=== PATIENT | male | born 1965 | race Caucasian/White ===

== ENCOUNTER 2025-02-22 15:52 | Emergency (ER) | payer OTHER, SELFPAY ==
[2025-02-22] VITALS (8 sets, daily range): BP systolic 130; BP diastolic 75–78; PULSE 71–73; TEMP 36.3; O2SAT 93–100; BMI 33.5
--- NOTE | 2025-02-22 16:06 | ECG_ITS ---
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 Measurements Intervals [place] Rate: 67 P: 24 TX: 190 QRS: 19 QRSD: 98 T: 66 QT: 434 QTc: 449 Interpretive Statements 1100 Sinus rhythm 9110 normal ECG No previous ECG available for comparison Electronically Signed On 02-22-2025 20:20:38 EDT by ANDRZEJ ESPINAL M.D.
--- NOTE | 2025-02-22 16:07 | ED.GENADUL1 ---
HPI HPI - General Adult General Chief complaint: Altered Mental Status Stated complaint: HYPOGLYCEMIA Time Seen by Provider: 02/22/25 16:05 History of Present Illness HPI narrative: 59-year-old male presents for altered mental status and presumed low blood sugar. He was transported here by his family. The patient was unresponsive upon arrival. Family arrives and give the recent history. [place] found him semiresponsive. They put him in their vehicle and brought him here. Upon arrival to the hospital he was unresponsive and he needed to be taken out of the vehicle by staff. Blood sugar read low and treatment ensued here. Family reports that he has been having recent episodes of low blood sugar and are requesting an alcohol level. He is on an insulin pump which was attached to him upon arrival. Related Data Home Medications ?Medication ?Instructions ?Recorded ?Confirmed celecoxib 200 mg capsule mg 02/22/25 ferrous sulfate 325 mg (65 mg mg 02/22/25 iron) tablet insulin aspart U-100 100 unit/mL 02/22/25 subcutaneous solution (Novolog U-100 Insulin aspart) levothyroxine 112 mcg tablet mcg 02/22/25 prochlorperazine maleate 10 mg mg 02/22/25 tablet Allergies Allergy/AdvReac Type Severity Reaction Status Date / Time No Known Drug Allergies Allergy Verified 02/22/25 16:04 Opioid HPI Opioid Management Most Recent Opioid Data: No Data to Display Review of Systems ROS Narrative After he was responsive review of systems was possible. A ten point review of systems is negative except as noted above. Exam Narrative Exam Narrative: Nurses note and vital signs reviewed and patient is not hypoxic. General: The patient is unresponsive upon arrival and diaphoretic Skin: Warm, diaphoretic, no pallor noted. There is no rash noted. Head: Normocephalic, atraumatic Eye: Normal conjunctiva, no drainage Ears, Nose, Mouth, and Throat: oral mucosa is moist. Nares patent. Cardiovascular: Regular Rate and Rhythm Respiratory: Patient is in no distress, no accessory muscle use, lungs are clear to auscultation, no wheezing, rales or rhonchi Back: non-tender GI: Soft and nontender Musculoskeletal: The patient has no evidence of calf tenderness, no pitting edema, symmetrical pulses noted bilaterally Neurological: Initially unresponsive. Subsequently awake and alert and oriented Psychiatric: Cooperative Constitutional Vital Signs, click to edit/add: Last Vital Signs Temp 97.4 F L 02/22/25 16:22 Pulse 72 02/22/25 16:40 Resp 22 H 02/22/25 16:40 BP 130/78 02/22/25 16:03 Pulse Ox 99 02/22/25 16:40 O2 Del Method Room Air 02/22/25 15:59 Course Vital Signs Vital signs: Vital Signs Pulse Rate 71 02/22/25 15:59 Respiratory Rate 8 L 02/22/25 15:59 Blood Pressure 130/75 02/22/25 15:59 Pulse Oximetry 99 02/22/25 15:59 Oxygen Delivery Method Room Air 02/22/25 15:59 Temperature 97.4 F L 02/22/25 16:22 Pulse Rate 72 02/22/25 16:40 Respiratory Rate 22 H 02/22/25 16:40 Blood Pressure 130/78 02/22/25 16:03 Pulse Oximetry 99 02/22/25 16:40 Oxygen Delivery Method Room Air 02/22/25 15:59 Medical Decision Making MDM Narrative Medical decision making narrative: The patient presented unresponsive and had a blood sugar of 22. He was given D50 and woke up and is now fully oriented. He was able to eat a small amount of food and his family is going to get him more food after leaving here. He will follow-up with his doctor for adjustment of his medication since he has been having frequent episodes of hypoglycemia. Findings were discussed with his family. Lab Data Lab results reviewed: Yes I reviewed the patient's lab results Labs: Lab Results 02/22/25 02/22/25 02/22/25 Range/Units 16:00 16:08 16:47 WBC 9.4 (4.0-11.0) 10^3/uL RBC 3.26 L (4.70-6.10) 10^6/uL Hgb 11.5 L (14.0-18.0) g/dL Hct 32.6 L (42.0-54.0) % MCV 100.0 H (80.0-94.0) fL MCH 35.3 H (25.9-34.0) pg MCHC 35.3 H (29.9-35.2) g/dL RDW 13.3 (11.0-15.0) % Plt Count 293 (150-450) 10^3/uL MPV 9.6 (9.5-13.5) fL Seg Neuts % (Manual) 75.0 (43.0-75.0) Lymphocytes % (Manual) 9.0 L (20.5-60.0) % Monocytes % (Manual) 12.0 (1.7-12.0) % Eosinophils % (Manual) 3.0 (0.9-7.0) % Basophils % (Manual) 1.0 (0.2-2.0) % Neutrophils # (Manual) 7.05 H (1.4-6.5) 10^3/uL Lymphocytes # (Manual) 0.84 L (1.20-3.80) 10^3/uL Monocytes # (Manual) 1.12 H (0.30-0.80) 10^3/uL Eosinophils # (Manual) 0.28 (0.00-0.70) 10^3/uL Basophils # (Manual) 0.09 (0.00-0.10) 10^3/uL Macrocytosis 1+ Sodium 133 L (136-145) mmol/L Potassium 3.3 L (3.5-5.1) mmol/L Chloride 99 (98-107) mmol/L Carbon Dioxide 23.5 (21.0-32.0) mmol/L Anion Gap 13.8 BUN 8.0 (7.0-18.0) mg/dL Creatinine 0.64 L (0.70-1.30) mg/dL Est GFR ( Amer) >60 (>=60 mL/min/1.73m^2) Est GFR (Non-Af Amer) >60 (>=60 mL/min/1.73m^2) BUN/Creatinine Ratio 12.5 Glucose 22 L* (74-106) mg/dL Calcium 8.5 (8.5-10.1) mg/dL Ethanol Quant <3 mg/dL POC Glucose 86 80 (74-106) mg/dL ECG Data Attestation: I personally reviewed and interpreted this ECG as follows: (EKG on my interpretation shows sinus rhythm with a rate of 67) Discharge Plan Discharge Chief Complaint: Altered Mental Status Clinical Impression: Hypoglycemia Patient Disposition: Home, Self-Care Time of Disposition Decision: 16:50 Condition: Good Mode of Transportation: Private Vehicle Prescriptions / Home Meds: No Action celecoxib 200 mg capsule prochlorperazine maleate 10 mg tablet insulin aspart U-100 [Novolog U-100 Insulin aspart] 100 unit/mL solution ferrous sulfate 325 mg (65 mg iron) tablet levothyroxine 112 mcg tablet Print Language: Kiswahili Instructions: Hypoglycemia in a Person with Diabetes (ED) Additional Instructions: Follow-up with your doctor to adjust your medications for diabetes Referrals: Physician,Non-Staff, MD [Primary Care Provider] - 1 week
[2025-02-22 16:16] LABS: Glucometer 86 mg/dL (74-106)
[2025-02-22 16:17] LABS: Hematocrit 32.6 % (42.0-54.0); Hemoglobin 11.5 g/dL (14.0-18.0); Mean Corpuscular HGB Conc 35.3 g/dL (29.9-35.2); Mean Corpuscular Hemoglobin 35.3 pg (25.9-34.0); Mean Platelet Volume 9.6 fL (9.5-13.5); Platelet Count 293 10^3/uL (150-450); Red Blood Count 3.26 10^6/uL (4.70-6.10); Red Cell Distribution Width 13.3 % (11.0-15.0); White Blood Count 9.4 10^3/uL (4.0-11.0)
[2025-02-22] MEDS: DEXTROSE 50 %-WATER 25 GM/50 ML SYRINGE IV (16:21)
[2025-02-22 16:28] LABS: Anion Gap 13.8; BUN Creatinine Ratio 12.5; Calcium 8.5 mg/dL (8.5-10.1); Carbon Dioxide 23.5 mmol/L (21.0-32.0); Chloride 99 mmol/L (98-107); Estimated GFR (African America >60 (>=60 mL/min/1.73m^2); Estimated GFR (Non-African Ame >60 (>=60 mL/min/1.73m^2); Potassium 3.3 mmol/L (3.5-5.1); Sodium 133 mmol/L (136-145)
[2025-02-22 16:31] LABS: Ethanol <3 mg/dL
[2025-02-22 16:32] LABS: Glucose 22 mg/dL (74-106)
[2025-02-22 16:36] LABS: Basophils Abs Manual 0.09 10^3/uL (0.00-0.10); Eosinophils Absolute Manual 0.28 10^3/uL (0.00-0.70); Lymphocytes Absolute Manual 0.84 10^3/uL (1.20-3.80); Monocytes Absolute Manual 1.12 10^3/uL (0.30-0.80); Segmented Neut Absolute Manual 7.05 10^3/uL (1.4-6.5)
[2025-02-22 16:37] LABS: Macrocytosis 1+
[2025-02-22 16:48] LABS: Glucometer 80 mg/dL (74-106)
== END 2025-02-22 17:10 | disposition home or self-care (01) ==
PROVIDERS: Emergency Provider Emergency Medicine
DX: E16.2 Hypoglycemia, unspecified (principal); R41.82 Altered mental status, unspecified
CPT/HCPCS: 36415; 80048; 80320; 85007; 85027; 93005; 96374; 99285